=== PATIENT | female | born 1995 | race Two or more races ===

== ENCOUNTER 2018-09-21 12:09 | Emergency (ER) | payer OTHER ==
[~2018-09-21] VITALS: Ht 162.6 cm; Wt 73.0 kg
[2018-09-21] MEDS ORDERED: IBUPROFEN 600MG TABLET PO ONE (13:15)
[2018-09-21 13:32] VITALS: BP 111/68
== END 2018-09-21 13:36 | disposition home or self-care (01) ==
LOC: ER 12:09
DX: G40.909 Epilepsy, unspecified, not intractable, without status epilepticus (principal)
CPT/HCPCS: 99282